=== PATIENT | male | born 1965 | race Two or more races ===

== ENCOUNTER 2023-01-08 07:33 | Day surgery (SDC) | payer OTHER ==
[~2023-01-08] VITALS: Ht 193 cm; Wt 133.8 kg
[2023-01-08] MEDS ORDERED: fentaNYL citrate 0.05 MG/ML VIAL ONE (07:56)
[2023-01-08] MEDS ORDERED: LIDOCAINE 2% 100 MG/5 ML UJET TP ONE (07:56)
[2023-01-08] MEDS ORDERED: fentaNYL citrate 0.05 MG/ML VIAL IVP ONE (08:50)
== END 2023-01-08 09:16 | disposition home or self-care (01) ==
LOC: MOR 07:33 → MMU 07:34 → MOR 09:16
PROVIDERS: ATTEND Internal Medicine Gastroenterology
DX: Z12.11 Encounter for screening for malignant neoplasm of colon (principal); E78.5 Hyperlipidemia, unspecified; E11.9 Type 2 diabetes mellitus without complications; Z79.899 Other long term (current) drug therapy
CPT/HCPCS: 45378; J3010